=== PATIENT | female | born 1980 | race Caucasian/White ===

== ENCOUNTER 2018-07-02 12:32 | Emergency (ER) | payer BC ==
[2018-07-02] VITALS (8 sets, daily range): BP systolic 126–151; BP diastolic 61–77
[~2018-07-02] VITALS: Ht 154.9 cm; Wt 90.7 kg
[~2018-07-02 12:32] MED LIST: ONDA8TAB6 PO; PS30T PO
--- NOTE | 2018-07-02 12:53 | ED General ---
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 She states she lightly struck her arm but had some pain initially. She then felt have disoriented and malaise. This occurred about an hour prior to arrival. She reports that she did not have any head injury or neck pain. She did not have a preceding symptoms. She states she was involved in a conversation and simply walked into the door. She has not had any chest pain although notes some tightness in her neck. This has resolved. No nausea or vomiting. Denies palpitations. Allergies and Home Medications Allergies Coded Allergies: Sulfa (Sulfonamides) (Verified Allergy, Intermediate, 09/10/07) Penicillins (Verified Allergy, Unknown, 06/22/07) Home Medications Ondansetron Hcl 8 Mg Tablet, 8 MG PO NEEDED, (Reported) Pseudoephedrine Hcl 30 Mg Tab, 1 TAB PO NEEDED, (Reported) Patient Home Medication List Home Medication List Reviewed: Yes Review of Systems Review of Systems Constitutional: see HPI, malaise, weakness EENTM: blurred vision; No double vision, No eye pain, No tearing, No vision loss, No hoarseness, No mouth pain, No nose congestion, No throat pain Respiratory: no symptoms reported; No short of breath, No stridor Cardiovascular: see HPI; No edema, No palpitations, No syncope Gastrointestinal: No abdominal pain, No diarrhea, No nausea Genitourinary: no symptoms reported; No hematuria, No pain : No LMP: Jul 02, 2018 Musculoskeletal: see HPI Skin: no symptoms reported Psychiatric/Neurological: See HPI, Anxiety, Depressed; Denies Paresthesia, Denies Seizure, Denies Tingling Hematologic/Lymphatic: See HPI; Denies Anemia, Denies Blood Clots, Denies Other Immunological/Allergic: denies see HPI, denies transplant Past Xluuqvv-Pavkjz-Wubfvl Hx Past Med/Social Hx: Reviewed Nursing Past Med/Soc Hx Patient Social History Recent Foreign Travel: No Contact w/Someone Who Travel: No Past Medical History Reproductive Disorders: No Physical Exam Vital Signs Vital Signs - First Documented 07/02/18 12:43 Temp 98.9 Pulse 87 Resp 14 B/P (MAP) 177/91 (119) Pulse Ox 100 O2 Delivery Room Air Capillary Refill : Height, Weight, BMI Height: '" Weight: lbs. oz. kg; BMI Method:Stated General Appearance: No Apparent Distress, WD/WN, Anxious Eyes: Bilateral Eye Normal Inspection, Bilateral Eye PERRL, Bilateral Eye EOMI HEENT: PERRL/EOMI, TMs Normal, Normal ENT Inspection, Pharynx Normal Neck: Full Range of Motion, Normal Inspection, Non Tender, Supple, Carotid Bruit Respiratory: Chest Non Tender, Lungs Clear, Normal Breath Sounds, No Accessory Muscle Use, No Respiratory Distress Cardiovascular: Regular Rate, Rhythm, No Edema, No Gallop, No JVD, No Murmur, Normal Peripheral Pulses Gastrointestinal: Normal Bowel Sounds, No Organomegaly, No Pulsatile Mass, Non Tender, Soft Back: Normal Inspection, No CVA Tenderness, No Vertebral Tenderness Extremity: Normal Capillary Refill, Normal Inspection, Normal Range of Motion, Non Tender, No Calf Tenderness, No Pedal Edema Neurologic/Psychiatric: Alert, Oriented x3, No Motor/Sensory Deficits, Normal 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, 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 as Tested; No EOM Palsy, No Facial Droop, No Motor Weakness, No Sensory Deficit Reflexes: 2+ Bicep (R), 2+ Bicep (L) Skin: Normal Color, Warm/Dry Lymphatic: No Adenopathy Progress/Results/Core Measures Suspected Sepsis SIRS Temperature: Pulse: Respiratory Rate: Laboratory Tests 07/02/18 12:50: White Blood Count 7.2 Blood Pressure / Mean: Laboratory Tests 07/02/18 12:50: Creatinine 0.68, Platelet Count 262, Total Bilirubin 0.3 Results/Orders Lab Results Laboratory Tests Test 07/02/18 12:50 07/02/18 15:00 Range/Units White Blood Count 7.2 4.3-11.0 10^3/uL Red Blood Count 4.44 4.35-5.85 10^6/uL Hemoglobin 12.2 11.5-16.0 G/DL Hematocrit 37 35-52 % Mean Corpuscular Volume 84 80-99 FL Mean Corpuscular Hemoglobin 27 25-34 PG Mean Corpuscular Hemoglobin Concent 33 32-36 G/DL Red Cell Distribution Width 14.1 10.0-14.5 % Platelet Count 262 130-400 10^3/uL Mean Platelet Volume 11.1 H 7.4-10.4 FL Neutrophils (%) (Auto) 59 42-75 % Lymphocytes (%) (Auto) 32 12-44 % Monocytes (%) (Auto) 6 0-12 % Eosinophils (%) (Auto) 2 0-10 % Basophils (%) (Auto) 0 0-10 % Neutrophils # (Auto) 4.3 1.8-7.8 X 10^3 Lymphocytes # (Auto) 2.3 1.0-4.0 X 10^3 Monocytes # (Auto) 0.5 0.0-1.0 X 10^3 Eosinophils # (Auto) 0.1 0.0-0.3 10^3/uL Basophils # (Auto) 0.0 0.0-0.1 10^3/uL Sodium Level 137 135-145 MMOL/L Potassium Level 3.8 3.6-5.0 MMOL/L Chloride Level 100 98-107 MMOL/L Carbon Dioxide Level 22 21-32 MMOL/L Anion Gap 15 H 5-14 MMOL/L Blood Urea Nitrogen 13 7-18 MG/DL Creatinine 0.68 0.60-1.30 MG/DL Estimat Glomerular Filtration Rate > 60 BUN/Creatinine Ratio 19 Glucose Level 137 H 70-105 MG/DL Calcium Level 9.4 8.5-10.1 MG/DL Corrected Calcium 9.2 8.5-10.1 MG/DL Total Bilirubin 0.3 0.1-1.0 MG/DL Aspartate Amino Transf (AST/SGOT) 16 5-34 U/L Alanine Aminotransferase (ALT/SGPT) 14 0-55 U/L Alkaline Phosphatase 98 40-136 U/L Troponin T < 6 <=10 NG/L Total Protein 7.9 6.4-8.2 GM/DL Albumin 4.3 3.2-4.5 GM/DL Urine Color YELLOW Urine Clarity CLEAR Urine pH 6.0 5-9 Urine Specific [place] <1.005 1.016-1.022 Urine Protein NEGATIVE NEGATIVE Urine Glucose (UA) NEGATIVE NEGATIVE Urine Ketones NEGATIVE NEGATIVE Urine Nitrite NEGATIVE NEGATIVE Urine Bilirubin NEGATIVE NEGATIVE Urine Urobilinogen 0.2 NORMAL MG/DL Urine Leukocyte Esterase NEGATIVE NEGATIVE Urine RBC (Auto) NEGATIVE NEGATIVE Urine RBC NONE /HPF Urine WBC 0-2 /HPF Urine Squamous Epithelial Cells 2-5 /HPF Urine Crystals NONE /LPF Urine Bacteria NEGATIVE /HPF Urine Casts NONE /LPF Urine Mucus NEGATIVE /LPF Urine Culture Indicated NO Urine Test NEGATIVE NEGATIVE My Orders Orders - ALIZE DEMARCO MD Cbc With Automated Diff (07/02/18 12:44) Comprehensive Metabolic Panel (07/02/18 12:44) Drug Screen Stat (Urine) (07/02/18 12:44) Ua Culture If Indicated (07/02/18 12:44) Ekg Tracing (07/02/18 12:47) Hcg,Qualitative Urine (07/02/18 12:59) Saline Lock/Iv-Start (07/02/18 13:43) Ns Iv 1000 Ml (Sodium Chloride 0.9%) (07/02/18 13:43) Vital Signs/I&O 07/02/18 12:43 Temp 98.9 Pulse 87 Resp 14 B/P (MAP) 177/91 (119) Pulse Ox 100 O2 Delivery Room Air Capillary Refill : Progress Note : Time: 12:54 Progress Note We'll evaluate for metabolic contribution to her symptoms. At this point, it appears to be anxiety related. She has been her quite concerned so will obtain testing. 1627 feeling much better after IV fluids. Results of lab tests discussed with patient and . Appears that she is somewhat dehydrated due to her recent URI which may have also affected her balance. We discussed proper hydration and outpatient follow-up. She is plans to take her current prescription for antibiotics and steroids that she has not started but was prescribed yesterday. ECG Initial ECG Impression Date: Jul 02, 2018 Initial ECG Impression Time: 12:47 Initial ECG Rate: 80 Initial ECG Rhythm: Normal Sinus Initial ECG Intervals: Normal Initial ECG Impression: Normal Initial ECG Comparisson: No Previous ECG Available Departure Impression Primary Impression: Dehydration Additional Impression: URI (upper respiratory infection) Qualified Codes: J06.9 - Acute upper respiratory infection, unspecified Disposition: 01 HOME, SELF-CARE Condition: Improved Departure-Patient Inst. Decision time for Depature: 16:30 Referrals: WINTER ISABEL (PCP) Primary Care Physician 2-3 days, sooner as needed Patient Instructions: Dehydration, Adult (DC), Orthostatic Hypotension (DC) Add. Discharge Instructions: Be sure to drink plenty of fluids. ALIZE DEMARCO MD Jul 02, 2018 12:53
[2018-07-02 13:01] LABS: HEMATOCRIT 37 % (35-52); HEMOGLOBIN 12.2 G/DL (11.5-16.0); MEAN CORPUSCULAR HEMOGLOBIN 27 PG (25-34); MEAN CORPUSCULAR HGB CONC 33 G/DL (32-36); MEAN CORPUSCULAR VOLUME 84 FL (80-99); RED CELL DISTRIBUTION WIDTH 14.1 % (10.0-14.5); WHITE BLOOD COUNT 7.2 10^3/uL (4.3-11.0)
[2018-07-02 13:02] LABS: BASOPHILS % (AUTO) 0 % (0-10); EOSINOPHILS # (AUTO) 0.1 10^3/uL (0.0-0.3); EOSINOPHILS % (AUTO) 2 % (0-10); LYMPHOCYTES # (AUTO) 2.3 X 10^3 (1.0-4.0); LYMPHOCYTES % (AUTO) 32 % (12-44); MEAN PLATELET VOLUME 11.1 FL (7.4-10.4); MONOCYTES # (AUTO) 0.5 X 10^3 (0.0-1.0); MONOCYTES % (AUTO) 6 % (0-12); NEUTROPHILS # (AUTO) 4.3 X 10^3 (1.8-7.8); NEUTROPHILS % (AUTO) 59 % (42-75); PLATELET COUNT 262 10^3/uL (130-400)
--- NOTE | 2018-07-02 13:35 | NUR ---
PT REQUEST SOMETHING TO DRINK. WATER GIVEN PER DR VERBAL ORDER.
[2018-07-02] MEDS ORDERED: NS IV 1000 ML 1,000 ML IV SCH (13:43)
[2018-07-02 13:49] LABS: ALANINE AMINOTRANSFERASE 14 U/L (0-55); ALBUMIN 4.3 GM/DL (3.2-4.5); ALKALINE PHOSPHATASE 98 U/L (40-136); BILIRUBIN,TOTAL 0.3 MG/DL (0.1-1.0); BUN/CREATININE RATIO 19; CALCIUM 9.4 MG/DL (8.5-10.1); CARBON DIOXIDE 22 MMOL/L (21-32); CHLORIDE 100 MMOL/L (98-107); CREATININE SERUM 0.68 MG/DL (0.60-1.30); GFR ESTIMATED > 60; GLUCOSE 137 MG/DL (70-105); POTASSIUM 3.8 MMOL/L (3.6-5.0); SODIUM 137 MMOL/L (135-145); TOTAL PROTEIN 7.9 GM/DL (6.4-8.2)
[2018-07-02 15:47] LABS: BILIRUBIN,URINE NEGATIVE (NEGATIVE); CLARITY,URINE CLEAR; COLOR,URINE YELLOW; GLUCOSE, URINE (UA) NEGATIVE (NEGATIVE); KETONES,URINE NEGATIVE (NEGATIVE); NITRITE,URINE NEGATIVE (NEGATIVE); PROTEIN,URINE NEGATIVE (NEGATIVE)
[2018-07-02 15:48] LABS: LEUKOCYTE ESTERASE ,URINE NEGATIVE (NEGATIVE); UROBILINOGEN,URINE 0.2 MG/DL (NORMAL); WBC,URINE 0-2 /HPF
[2018-07-02 15:49] LABS: BACTERIA,URINE NEGATIVE /HPF
[2018-07-02 16:51] LABS: AMPHETAMINE SCREEN, URINE NEGATIVE (NEGATIVE); BARBITURATE SCREEN URINE NEGATIVE (NEGATIVE); BENZODIAZEPINES SCREEN URINE NEGATIVE (NEGATIVE); CANNABINOID SCREEN, URINE NEGATIVE (NEGATIVE); COCAINE SCREEN URINE NEGATIVE (NEGATIVE); METHADONE STAT NEGATIVE (NEGATIVE); METHAMPHETAMINE SCREEN URINE S NEGATIVE (NEGATIVE); OPIATE SCREEN URINE NEGATIVE (NEGATIVE); OXYCODONE STAT NEGATIVE (NEGATIVE); PROPOXYPHENE STAT NEGATIVE (NEGATIVE); TRICYCLIC ANTIDEPRESSANTS SCRE NEGATIVE (NEGATIVE)
== END 2018-07-02 16:51 | disposition home or self-care (01) ==
LOC: EDUNIT# 12:32 → ER FS 12:37
DX: E86.0 Dehydration (principal); J06.9 Acute upper respiratory infection, unspecified; F41.9 Anxiety disorder, unspecified; F32.9 Major depressive disorder, single episode, unspecified; Z88.2 Allergy status to sulfonamides; Z88.0 Allergy status to penicillin
CPT/HCPCS: 36415; 80053; 80306; 81000; 84484; 84703; 85025; 93005

== ENCOUNTER 2019-04-23 17:28 | Emergency (ER) | payer BC ==
[~2019-04-23] VITALS: Ht 154.9 cm; Wt 94.4 kg
--- NOTE | 2019-04-23 17:41 | ED General ---
General Stated Complaint: CHEST PAIN Source of Information: Patient History of Present Illness Date Seen by Provider: Apr 23, 2019 Time Seen by Provider: 17:36 Initial Comments Patient is a 38-year-old female who comes to the emergency department today complaining of chest pain. She started having pain over the left upper chest over 48 hours earlier. Pain has been constant and is described to be sharp. She has not identified any aggravating or alleviating factors. She has no shortness of breath. No recent illness or viral symptoms. No cough, fever, chills. No prior history of similar symptoms although she does have a known diagnosis of fibromyalgia. No significant family history for coronary artery disease other than in her grandfather who was much older than she is now. She currently has IUD in place. No history of estrogen use. No recent travel. Allergies and Home Medications Allergies Coded Allergies: Sulfa (Sulfonamides) (Verified Allergy, Intermediate, 09/10/07) Penicillins (Verified Allergy, Unknown, 06/22/07) Home Medications Ondansetron Hcl 8 Mg Tablet, 8 MG PO NEEDED, (Reported) Pseudoephedrine Hcl 30 Mg Tab, 1 TAB PO NEEDED, (Reported) Patient Home Medication List Home Medication List Reviewed: Yes Review of Systems Review of Systems Constitutional: no symptoms reported EENTM: no symptoms reported Respiratory: no symptoms reported Cardiovascular: see HPI Gastrointestinal: no symptoms reported : No Musculoskeletal: no symptoms reported Skin: no symptoms reported All Other Systems Reviewed Negative Unless Noted: Yes Past Nvjdapw-Umeyqu-Ggtgyc Hx Patient Social History Recent Hopitalizations: No Seasonal Allergies Seasonal Allergies: Yes Past Medical History Gallbladder Respiratory: No Cardiac: No Neurological: No 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 Sexually Transmitted Disease: No HIV/AIDS: No Genitourinary: No Gastrointestinal: No Gall Bladder Disease Musculoskeletal: No Endocrine: No HEENT: No Hearing Impairment: Denies Cancer: Yes (Basal Cell Skin CA removed from back) Skin Did You Recieve Any Treatments: Yes What Type of Treatment Did You: Surgical Intervention Anxiety, Depression Integumentary: No Blood Disorders: No Adverse Reaction/Blood Tranf: No Physical Exam Vital Signs Vital Signs - First Documented 04/23/19 17:35 Temp 36.6 Pulse 93 Resp 20 B/P (MAP) 147/82 (103) Pulse Ox 100 O2 Delivery Room Air Capillary Refill : Height, Weight, BMI Height: 5'1.00" Weight: 200lbs. oz. 90.712232xm; BMI Method:Stated General Appearance: No Apparent Distress, WD/WN Eyes: Bilateral Eye Normal Inspection, Bilateral Eye EOMI HEENT: PERRL/EOMI, TMs Normal Neck: Full Range of Motion, Supple Respiratory: Lungs Clear, Normal Breath Sounds Cardiovascular: Regular Rate, Rhythm, No Edema, No Murmur Gastrointestinal: Non Tender, Soft Extremity: Normal Capillary Refill, No Calf Tenderness Neurologic/Psychiatric: Alert, Oriented x3 Skin: Normal Color, Warm/Dry Progress/Results/Core Measures Suspected Sepsis SIRS Temperature: Pulse: Respiratory Rate: Blood Pressure / Mean: Results/Orders My Orders Orders - MAURICIO MACIAS DO Ed Iv/Invasive Line Start (04/23/19 17:31) Cbc With Automated Diff (04/23/19 17:31) Basic Metabolic Panel (04/23/19 17:31) Troponin I Fs (04/23/19 17:31) Ekg Tracing (04/23/19 17:31) Chest Pa/Lat (2 View) (04/23/19 17:31) Vital Signs/I&O 04/23/19 04/23/19 17:35 17:35 Temp 36.6 Pulse 93 Resp 20 B/P (MAP) 147/82 (103) Pulse Ox 100 O2 Delivery Room Air Room Air Capillary Refill : Progress Note : Time: 17:39 Progress Note Patient is seen and examined. Patient is low risk for coronary artery disease by history. Her heart score is 1 based only on presentation and EKG. Troponin is pending. No shortness of breath or palpitations. Chest pain workup is ordered. She is PERC negative. Overall normal physical examination. 18:10: Patient currently resting comfortably. Chest x-ray is completed and there are no acute findings. Transfer care at this time to Dr. Richardson. Please follow up on labs. Patient has had symptoms for over 48 hours. A single troponin is pending. Anticipate discharge home. ECG Initial ECG Impression Date: Apr 23, 2019 Initial ECG Impression Time: 17:40 Initial ECG Rate: 85 Initial ECG Rhythm: Normal Sinus Initial ECG Intervals: Normal Initial ECG Impression: Normal Departure Impression Primary Impression: Chest pain Disposition: 01 HOME, SELF-CARE Condition: Stable Departure-Patient Inst. Referrals: AUGUSTINE SOLANO MD (PCP/Family) Primary Care Physician MAURICIO MACIAS DO Apr 23, 2019 17:40 POS
--- NOTE | 2019-04-23 18:02 | Diagnostic Imaging Report ---
EXAMINATION: Chest 2 view HISTORY: Chest pain COMPARISON: None available. FINDINGS: The lungs are clear without edema or pneumonia. No pleural effusion or pneumothorax. Heart size is normal. IMPRESSION: 1. Clear lungs. Dictated by: Dictated on workstation # [id number]
[2019-04-23 18:27] LABS: BUN/CREATININE RATIO 16; CALCIUM 9.5 MG/DL (8.5-10.1); CARBON DIOXIDE 26 MMOL/L (21-32); CHLORIDE 103 MMOL/L (98-107); CREATININE SERUM 0.67 MG/DL (0.60-1.30); GFR ESTIMATED > 60; GLUCOSE 124 MG/DL (70-105); POTASSIUM 3.9 MMOL/L (3.6-5.0); SODIUM 141 MMOL/L (135-145)
[2019-04-23 18:28] LABS: BASOPHILS % (AUTO) 0 % (0-10); EOSINOPHILS # (AUTO) 0.1 10^3/uL (0.0-0.3); EOSINOPHILS % (AUTO) 2 % (0-10); HEMATOCRIT 36 % (35-52); HEMOGLOBIN 11.8 G/DL (11.5-16.0); LYMPHOCYTES # (AUTO) 2.4 X 10^3 (1.0-4.0); LYMPHOCYTES % (AUTO) 30 % (12-44); MEAN CORPUSCULAR HEMOGLOBIN 28 PG (25-34); MEAN CORPUSCULAR HGB CONC 33 G/DL (32-36); MEAN CORPUSCULAR VOLUME 84 FL (80-99); MEAN PLATELET VOLUME 11.1 FL (7.4-10.4); MONOCYTES # (AUTO) 0.5 X 10^3 (0.0-1.0); MONOCYTES % (AUTO) 6 % (0-12); NEUTROPHILS # (AUTO) 5.1 X 10^3 (1.8-7.8); NEUTROPHILS % (AUTO) 62 % (42-75); PLATELET COUNT 283 10^3/uL (130-400); RED CELL DISTRIBUTION WIDTH 13.1 % (10.0-14.5); WHITE BLOOD COUNT 8.1 10^3/uL (4.3-11.0)
--- NOTE | 2019-04-23 19:05 | NUR ---
Report to Abhishek OLVERA.
[2019-04-23] MEDS ORDERED: ASPIRIN 325 MG (5 GR) TABLET PO ONE (19:45)
[2019-04-23] MEDS ORDERED: IBUPROFEN 800 MG (MOTRIN) TAB PO ONE (19:45)
[2019-04-23] MEDS ORDERED: DICL50TA4 PO (19:50)
[2019-04-23 20:00] VITALS: BP 144/69
== END 2019-04-23 20:00 | disposition home or self-care (01) ==
LOC: EDUNIT# 17:28 → ER FS 17:30
DX: R07.89 Other chest pain (principal); M79.7 Fibromyalgia; F41.9 Anxiety disorder, unspecified; F32.9 Major depressive disorder, single episode, unspecified; Z88.2 Allergy status to sulfonamides; Z88.0 Allergy status to penicillin; Z85.828 Personal history of other malignant neoplasm of skin
CPT/HCPCS: 36415; 71046; 80048; 84484; 85025; 93005